=== PATIENT | female | born 1980 | race Caucasian/White ===

== ENCOUNTER 2020-05-31 17:26 | Emergency (ER) | payer OTHER, SELFPAY ==
--- NOTE | ~2020-05-31 | XR_ITS ---
EXAMINATION: XR chest 2V DATE: 05/31/2020 18:11 INDICATION: Midsternal and left-sided chest pain TECHNIQUE: PA and lateral views of the chest are obtained. COMPARISON: None available FINDINGS: The lungs are free of acute opacities. There is no pleural effusion or pneumothorax. The ca rdiomediastinal silhouette is normal. The visualized bones and soft tissues are unremarkable. IMPRESSION: 1. No acute cardiopulmonary abnormality. Reviewed, dictated and finalized at location A.
--- NOTE | 2020-05-31 17:35 | ECG_ITS ---
Measurements Intervals [place] Rate: 89 P: 61 [place]: 150 QRS: 98 QRSD: 87 T: 49 QT: 361 QTc: 441 Interpretive Statements SINUS RHYTHM BORDERLINE T WAVE ABNORMALITY- ANTERIOR LEADS BASELINE ARTIFACT- I, II, III, AVR, AVL, AVF, V2-V6 BORDERLINE ECG Electronically Signed On 05-31-2020 19:01:33 CDT by Kirk Joseph D.O.
[2020-05-31 17:36] VITALS: BP 175/97; PULSE 84; RESP 18; TEMP 36.6; O2SAT 100
[2020-05-31 17:56] VITALS: PULSE 84
[2020-05-31 17:57] VITALS: O2SAT 100
[2020-05-31 18:02] LABS: Basophils Absolute Auto 0.1 K/mm3 (0.0-0.1); Basophils Percent Auto 1.1 % (0.2-1.2); Eosinophils Absolute Auto 0.1 K/mm3 (0-0.3); Eosinophils Percent Auto 1.9 % (0-4.4); Hematocrit 40.2 % (37.0-47.0); Hemoglobin 13.1 g/dL (12.0-15.0); Immature Granulocyte Absolute 0.01 K/mm3 (0.00-0.031); Immature Granulocyte Percent A 0.1 % (0-0.5); Lymphocytes Absolute Auto 3.16 K/mm3 (0.9-3.2); Lymphocytes Percent Auto 42.2 % (18.3-44.2); Mean Corpuscular HGB Conc 32.6 g/dl (32-36); Mean Corpuscular Volume 89.1 fl (80-100); Mean Platelet Volume 10.9 fl (7.4-10.4); Monocytes Absolute Auto 0.6 K/mm3 (0.1-0.6); Monocytes Percent Auto 7.6 % (2.6-8.5); Neutrophils Absolute Auto 3.5 K/mm3 (1.3-6.7); Neutrophils Percent Auto 47.1 % (45.5-73.1); Platelet Count Result 258 k/mm3 (150-375); Red Blood Count 4.51 M/mm3 (4.2-5.4); Red Cell Distribution Width 12.9 % (11.5-14.5); White Blood Count 7.5 K/mm3 (4.5-10.0)
[2020-05-31 18:14] LABS: INR 0.8; Prothrombin Time 11.7 Seconds (11.1-14.7)
[2020-05-31 18:15] LABS: Partial Thromboplastin Time 28.3 SECONDS (22.3-36.8)
[2020-05-31 18:19] LABS: Anion Gap 5 mmol/L (8-16); Blood Urea Nitrogen 10 mg/dL (7-17); Calcium 8.9 mg/dL (8.4-10.2); Carbon Dioxide 28 mmol/L (22-30); Chloride 105 mmol/L (98-107); Estimated CRCL calculation 94 ml/min; Estimated Glomerular Filt Rate > 60; Glucose 106 mg/dL (65-105); Potassium 3.8 mmol/L (3.4-5.0); Sodium 138 mmol/L (137-145)
[2020-05-31 18:31] LABS: Troponin I < 0.012 ng/mL (0.000-0.034)
--- NOTE | 2020-05-31 18:33 | ED.CHESTPAIN ---
HPI - Chest Pain General Chief Complaint: Chest Pain Stated Complaint: h/a and cp Time Seen by Provider: 05/31/20 17:55 History of Present Illness HPI narrative: Intermittent sharp left sided chest pain since earlier today. Worse with taking a deep breath. No change with activity. She reports that she was having heart burn yesterday which seemed to turn into this pain. Additionally she complains of intermittent headaches for the past 3 weeks. Moderate intensity. tried OTC medications without complete relief. Related Data Home Medications Medication Instructions Recorded Confirmed fluoxetine [Prozac] 30 mg PO DAILY 05/31/20 Allergies Allergy/AdvReac Type Severity Reaction Status Date / Time No Known Allergies Allergy Verified 05/31/20 17:50 Review of Systems Review of Systems: All systems reviewed & are unremarkable except as noted in HPI and below Constitutional: Constitutional: Denies chills and Denies fever(s) Eyes: Eyes: Denies change in vision ENT: Denies dizziness Cardiovascular: Cardiovascular: Reports chest pain Respiratory: Respiratory: Denies dyspnea Gastrointestinal: Gastrointestinal: Reports abdominal pain Neurologic: Reports system reviewed and no additional complaints, except as documented PENDING SALE TO [facility] Past Medical History Medical History (Updated 05/31/20 @ 22:54 by Hank Harrison MD) Depression Social History Social History Gender identity (if verbalized by the patient): Female Exam Const: General: healthy appearing, no acute distress and alert Orientation/consciousness: patient oriented x3 HENMT: Head: normal to inspection Eyes: Conjunctivae: conjunctivae normal Pupils: Equal, round and reactive pupils present EOM: EOMs intact bilaterally Neck: Neck: normal visual inspection and no lymphadenopathy Chest: Chest palpation & inspection: no tenderness Resp: Effort & Inspection: normal respiratory effort Auscultation: clear to auscultation bilaterally, no rales, no rhonchi and no wheezes Cardio: Jugular venous distension: no JVD Rate: regular rate Rhythm: regular rhythm Heart sounds: no murmurs GI: Inspection: non-distended GI Palp: Yes Soft to palpation and No Tenderness to palpation present (GI) Skin: General skin exam: normal color Neuro: General: patient oriented x3 and moves all extremities Speech: normal speech Extrem: General: no edema Psych: Appearance: well kempt Affect: normal affect Course Vital Signs Vital signs: Vital Signs Temperature 36.6 C 05/31/20 17:36 Pulse Rate 84 05/31/20 17:36 Respiratory Rate 18 05/31/20 17:36 Blood Pressure 175/97 H 05/31/20 17:36 Pulse Oximetry 100 05/31/20 17:36 Temperature 36.6 C 05/31/20 17:36 Pulse Rate 72 05/31/20 19:10 Respiratory Rate 16 05/31/20 19:10 Blood Pressure 133/75 05/31/20 19:10 Pulse Oximetry 100 05/31/20 19:10 MDM - Chest Pain MDM Narrative Medical decision making narrative: Pain is atypical. Low risk for PA. EKG has nonspecific changes. Troponin negative. Heart score 1 Differential Diagnosis Differential diagnosis: Likely unstable angina pectoris and atypical chest pain Medical Records Data Attestation: I reviewed the patient's medical records. Lab Data Attestation: I reviewed the patient's lab results. Result diagrams: 05/31/20 17:56 05/31/20 17:56 Labs: Lab Results 05/31/20 05/31/20 05/31/20 Range/Units 17:56 17:56 17:56 WBC 7.5 (4.5-10.0) K/mm3 RBC 4.51 (4.2-5.4) M/mm3 Hgb 13.1 (12.0-15.0) g/dL Hct 40.2 (37.0-47.0) % MCV 89.1 (80-100) fl MCH 29.0 (26-34) pg MCHC 32.6 (32-36) g/dl RDW 12.9 (11.5-14.5) % Plt Count 258 (150-375) k/mm3 MPV 10.9 H (7.4-10.4) fl Immature Gran % (Auto) 0.1 (0-0.5) % Neut % (Auto) 47.1 (45.5-73.1) % Lymph % (Auto) 42.2 (18.3-44.2) % [place] % (Auto) 7.6 (2.6-8.5) % Eos % (Auto) 1.9 (0-4.4) % Baso % (Auto)
[2020-05-31] MEDS: METOCLOPRAMIDE HCL INJ 10 MG/2 ML VIAL IV PUSH (18:49)
[2020-05-31 18:51] VITALS: BP 128/87; PULSE 108; RESP 18; O2SAT 100
[2020-05-31 19:10] VITALS: BP 133/75; PULSE 72; RESP 16; O2SAT 100
== END 2020-05-31 19:10 | disposition home or self-care (01) ==
PROVIDERS: Emergency Provider Emergency Medicine; PCP Family Medicine
DX: R07.89 Other chest pain (principal); G44.209 Tension-type headache, unspecified, not intractable; F32.9 Major depressive disorder, single episode, unspecified
CPT/HCPCS: 36415; 71046; 80048; 84484; 85025; 85610; 85730; 93005; 96374; 99284; J2765